=== PATIENT | male | born 1950 | race Caucasian/White ===

== ENCOUNTER 2017-06-06 13:28 | Emergency (ER) | payer OTHER, MEDICARE ==
--- NOTE | 2017-06-06 13:36 | CPEKG ---
Heart Rate: 71 RR Interval: 845 P-R Interval: 188 QRSD Interval: 90 QT Interval: 380 QTC Interval: 413 P Fisher: -32 QRS Fisher: -56 T Wave Fisher: 36 EKG Severity - ABNORMAL ECG - EKG Impression: SINUS RHYTHM EKG Impression: LEFT ANTERIOR FASCICULAR BLOCK Electronically Signed By: Anni Murillo 06-Jun-2017 21:01:16
[2017-06-06 13:39] VITALS: O2SAT 98
--- NOTE | 2017-06-06 14:06 | EDPHY ---
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 Aside from a baby aspirin he does not take any anticoagulants. He went on a 20 mile bike ride today and at the end of the ride his heart rate was in the 140s (based on the reading on his heart rate monitor). He has a history of PVCs and initially thought that he was likely having frequent PVCs. However, with rest, his heart rate did not decrease, as he expected that it would. As a result he came to the emergency department. He has not had chest pain or shortness of breath. No calf swelling or pain. No risk factors for venous thromboembolism. REVIEW OF SYSTEMS: A ten point review of systems was performed and is negative with the exception of the items mentioned in the HPI. Past medical history: 1. 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 Diverticulosis with perforation Past surgical history: Mitral valve repair Social history: He is a retired emergency department physician and university administrator. He does not use tobacco products. He drinks alcohol socially. General Appearance: Alert. Vital signs reviewed. Triage blood pressure 120/78 , heart rate 79, respiratory rate 18, temperature 36.7 degrees centigrade, and room air pulse ox 98%. Neck: No JVD. Respiratory: Lungs are clear to auscultation; no wheezes, rales, or rhonchi. Cardiovascular: Regular rate and rhythm with frequent ectopy; no murmur, rub, or gallop. Gastrointestinal: Abdomen is soft and nontender, no masses or organomegaly. Skin: Warm and dry, no rashes on exposed skin, normal color. Back: Nontender to palpation over the thoracolumbar spine. Extremities: No lower extremity edema, no calf tenderness or swelling. Neurological: Alert and oriented. Moving all four extremities easily and equally. Psychiatric: Normal affect. - Medical/Surgical History Hx Asthma: No Hx Chronic Respiratory Disease: No Hx Diabetes: No Hx Cardiac Disease: Yes Hx Renal Disease: No Hx Cirrhosis: No Hx Alcoholism: No Hx HIV/AIDS: No Hx Splenectomy or Spleen Trauma: No Other PMH: mitral valve repair 2016, mild HTN - Social History Smoking Status: Never smoked Constitutional: Initial Vital Signs Temperature (C) 36.7 C 06/06/17 13:37 Heart Rate 79 06/06/17 13:37 Respiratory Rate 18 06/06/17 13:37 Blood Pressure 120/78 06/06/17 13:37 O2 Sat (%) 98 06/06/17 13:37 O2 Delivery Mode Room Air Allergies/Adverse Reactions: No Known Allergies Allergy (Unverified 08/08/12 16:29) Home Medications: Medication Instructions Recorded Losartan Potassium [Cozaar 50 mg 100 mg PO DAILY 08/08/12 (RX)] Mvits 08/08/12 Medical Decision Making - Diagnostics EKG Interpretation: 12 lead EKG is interpreted in Trace master View by emergency department physician. ED Course/Re-evaluation: Patient with a history of frequent PVCs who presents after experiencing a persistently rapid heart rate post exertion. His heart rate in the emergency department is within normal parameters. He is having frequent ectopy. CBC, chemistries, and thyroid studies were sent. CBC is normal with the exception of slight elevation in neutrophils. Chemistries are normal. Thyroid studies are normal. I do not suspect an acute coronary syndrome. Has no current signs or symptoms of PE and no risk factors. Based on Well's scoring for PE is low risk and I do not recommend additional evaluation for PE. His electrolytes are within normal limits. Heart sounds are normal. I do not suspect CHF. He has had a mitral valve repair and I do not think that his rapid heartbeat is related to valvular dysfunction. Thyroid studies are normal I do not think that an endocrine problem is causing him to have an irregular heartbeat. He does not use stimulant drugs that might cause cardiac irregularity. He is comfortable returning home with no further evaluation. He will follow up with a social services analyst. He understands the danger signs that should prompt him to be re-evaluated. - Data Points Laboratory Results: Laboratory Results 06/06/17 14:12 06/06/17 14:12 06/06/17 06/06/17 14:12 14:12 WBC 8.20 10^3/uL 10^3/uL (3.80-9.50) RBC 4.94 10^6/uL 10^6/uL (4.40-6.38) Hgb 14.9 g/dL g/dL (13.7-17.5) Hct 42.6 % % (40.0-51.0) MCV 86.2 fL fL (81.5-99.8) MCH 30.2 pg pg (27.9-34.1) MCHC 35.0 g/dL g/dL (32.4-36.7) RDW 13.2 % % (11.5-15.2) Plt Count 189 10^3/uL 10^3/uL (150-400) MPV 10.7 fL fL (8.7-11.7) Neut % (Auto) 79.8 % H % (39.3-74.2) Lymph % (Auto) 9.9 % L % (15.0-45.0) Chase % (Auto) 6.1 % % (4.5-13.0) Eos % (Auto) 2.6 % % (0.6-7.6) Baso % (Auto) 0.9 % % (0.3-1.7) Nucleat RBC Rel Count 0.0 % % (0.0-0.2) Absolute Neuts (auto) 6.55 10^3/uL H 10^3/uL (1.70-6.50) Absolute Lymphs (auto) 0.81 10^3/uL L 10^3/uL (1.00-3.00) Absolute Monos (auto) 0.50 10^3/uL 10^3/uL (0.30-0.80) Absolute Eos (auto) 0.21 10^3/uL 10^3/uL (0.03-0.40) Absolute Basos (auto) 0.07 10^3/uL 10^3/uL (0.02-0.10) Absolute Nucleated RBC 0.00 10^3/uL 10^3/uL (0-0.01) Immature Gran % 0.7 % % (0.0-1.1) Immature Gran # 0.06 10^3/uL 10^3/uL (0.00-0.10) Sodium 139 mEq/L mEq/L (135-145) Potassium 4.9 mEq/L mEq/L (3.5-5.2) Chloride 103 mEq/L mEq/L (97-110) Carbon Dioxide 25 mEq/l mEq/l (22-31) Anion Gap 11 mEq/L mEq/L (8-16) BUN 20 mg/dL mg/dL (7-23) Creatinine 1.1 mg/dL mg/dL (0.7-1.3) Estimated GFR > 60 Glucose 81 mg/dL mg/dL (70-100) Calcium 9.6 mg/dL mg/dL (8.5-10.4) TSH 2.300 uIU/mL uIU/mL (0.465-4.680) Thyroxine (T4) 9.79 ug/dL ug/dL (5.53-11.00) Free T3 4.05 pg/mL pg/mL (2.77-5.27) Departure - Departure Disposition: Home, Routine, Self-Care Clinical Impression: PVC (premature ventricular contraction), PAC (premature atrial contraction) Condition: Good Instructions: Premature Ventricular Contractions (ED), Premature Atrial Contractions (ED) Additional Instructions: Please return if you have frequent ectopy, an irregular rapid heart rate, fainting, chest pain, or shortness of breath. Follow up with your social services analyst and/or Dr. Verdugo or Dr. Charlton. Referrals: Ben Verdugo MD [Medical Doctor] - As per Instructions
[2017-06-06 14:23] LABS: PLATELET COUNT 189 10^3/uL (150-400)
[2017-06-06 15:23] VITALS: TEMP 97.5
[2017-06-06 15:24] VITALS: BP 125/73; PULSE 64; RESP 16
== END 2017-06-06 15:24 | disposition home or self-care (01) ==
DX: I49.3 Ventricular premature depolarization (principal); I49.1 Atrial premature depolarization; I10 Essential (primary) hypertension
CPT/HCPCS: 84481-90

== ENCOUNTER → 2017-06-29 | Outpatient (CLI) | payer OTHER, MEDICARE | LOC: BHFA 11:30 | PROVIDERS: ATTEND Internal Medicine Cardiovascular Disease | DX: R00.2 Palpitations (principal) ==

== ENCOUNTER 2017-07-02 12:02 | Day surgery (SDC) | payer OTHER, MEDICARE ==
[2017-07-02] MEDS ORDERED: LIDOCAINE 1% 300 MG/30 ML SDV SC ONE (12:07)
--- NOTE | 2017-07-02 12:39 | PDHPUP ---
History & Physical Update H&P update statement: This history and physical update is based on an assessment of the patient which was completed after admission or registration (within 24 hours), but prior to the surgery/procedure. H&P update: H&P reviewed & patient examined, no change in patient's condition since H&P completed
--- NOTE | 2017-07-02 12:41 | PDPROPOC ---
Sedation Plan of Care Sedation Plan of Care: vital signs stable, mental status noted, patient educated of risks, benefits, alternatives ASA Classification: ASA 3 Planned drugs: other Mallampati Score: Class 3 Mallampati Reference Image: Patient passed 3-3-2 rule?: Yes
--- NOTE | 2017-07-02 13:47 | EPPROC ---
Electrophysiology Procedure Note: Procedure: ILR implant Indication: Palpitation of unknown etiology in a patient with previous CVA and MV repair Procedure: Parts prepared and draped. LA given. Incision placed. Using usual technique [place] Confirm ILR placed. [place] placed after hemostasis achieved. Dry sterile dressing placed. Conclusion: Successful ILR implant
== END 2017-07-02 13:51 | disposition home or self-care (01) ==
LOC: FCATH 12:02
PROVIDERS: ATTEND Internal Medicine Cardiovascular Disease
PROC: 0JH60PZ Insertion of Cardiac Rhythm Related Device into Chest Subcutaneous Tissue and Fascia, Open Approach (ICD-10-PCS; principal; 2017-07-02)
DX: R94.31 Abnormal electrocardiogram [ECG] [EKG] (principal); I10 Essential (primary) hypertension; I49.3 Ventricular premature depolarization; Z86.73 Personal history of transient ischemic attack (TIA), and cerebral infarction without residual deficits
CPT/HCPCS: C1764

== ENCOUNTER → 2017-09-23 | Outpatient (CLI) | payer OTHER, MEDICARE | LOC: BHLMT 11:30 | PROVIDERS: ATTEND Internal Medicine Cardiovascular Disease | DX: I49.3 Ventricular premature depolarization (principal) | CPT/HCPCS: 93005-PO ==

== ENCOUNTER → 2017-10-10 | Outpatient (CLI) | payer OTHER, MEDICARE | LOC: FIMAGING 12:41 | PROVIDERS: ATTEND Orthopaedic Surgery | DX: M24.131 Other articular cartilage disorders, right wrist (principal); M24.831 Other specific joint derangements of right wrist, not elsewhere classified; M94.231 Chondromalacia, right wrist; Z87.81 Personal history of (healed) traumatic fracture ==

== ENCOUNTER → 2017-11-24 | Outpatient (CLI) | payer OTHER, MEDICARE ==
[~2017-11-24] MED LIST: GADOBUTROL 10 ML VIAL IVP ONE
== END ==
LOC: FIMAGING 13:50
PROVIDERS: ATTEND Urology
DX: N42.9 Disorder of prostate, unspecified (principal)
CPT/HCPCS: 72197; 76377; A9585; 82565-PO

== ENCOUNTER → 2018-02-03 | Outpatient (CLI) | payer OTHER, MEDICARE | LOC: BHFA 09:00 | PROVIDERS: ATTEND Internal Medicine Cardiovascular Disease | DX: I49.3 Ventricular premature depolarization (principal) ==

== ENCOUNTER → 2018-07-07 | Outpatient (CLI) | payer OTHER, MEDICARE | LOC: BHFA 13:15 | PROVIDERS: ATTEND Internal Medicine Cardiovascular Disease | DX: I49.3 Ventricular premature depolarization (principal) ==

== ENCOUNTER 2018-09-16 07:54 | Day surgery (SDC) | payer OTHER, MEDICARE | END 2018-09-16 10:54 | disposition home or self-care (01) | LOC: FCATH 07:54 ==